=== PATIENT | male | born 1950 | race Caucasian/White ===

== ENCOUNTER 2022-08-24 14:10 | Emergency (ER) | payer OTHER ==
[2022-08-24] MEDS ORDERED: DIAZEPAM 5 MG TABLET ONE (14:33)
[2022-08-24] MEDS ORDERED: HYDROCODONE/APAP 5/325 MG TAB ONE (14:34)
--- NOTE | 2022-08-24 16:04 | RAD REPORT ---
EXAM DESCRIPTION: RAD - Ribs Left - 08/24/2022 3:56 pm CLINICAL HISTORY: left ribs COMPARISON: No comparisons FINDINGS/IMPRESSION: Acute minimally displaced left anterolateral seventh through tenth rib fracture s. No pneumothorax .
--- NOTE | 2022-08-24 16:05 | RAD REPORT ---
EXAM DESCRIPTION: RAD - Pelvis - 08/24/2022 3:56 pm CLINICAL HISTORY: TRAUMA COMPARISON: No comparisons FINDINGS/IMPRESSION: Complex fractures involving both the right and left obturator rings. Recommend CT for further evaluation. No hip fracture is seen
--- NOTE | 2022-08-24 16:06 | RAD REPORT ---
EXAM DESCRIPTION: RAD - Chest Single View - 08/24/2022 3:56 pm CLINICAL HISTORY: TRAUMA COMPARISON: Pelvis dated 08/24/2022; Ribs Left dated 08/24/2022 FINDINGS: Lines: None. Lungs: No evidence of edema or pneumonia. Pleural: No significant pleural effusions or pneumothorax. Cardiac: The heart size is within normal limits. Mediastinum: Within normal limits. Bones: Left rib fractures. Reference dedicated left rib series. Other: None IMPRESSION: No acute cardiopulmonary disease. Known left-sided rib fractures.
--- NOTE | 2022-08-24 16:07 | RAD REPORT ---
EXAM DESCRIPTION: RAD - Hand Left 3 View - 08/24/2022 3:56 pm CLINICAL HISTORY: PAIN COMPARISON: No comparisons FINDINGS/IMPRESSION: No acute fracture. No malalignment. Mild degenerative changes are present at th e first carpometacarpal joint. Mild interphalangeal joint space narrowing and degenerative changes at the first through third MCPs.
[2022-08-24 16:39] LABS: Absolute Lymphocytes (CBC) 0.6 K/uL (0.7-4.9); Hematocrit 40.2 % (39.6-49.0); Lymphocytes % 6.7 % (15.3-44.8); MCV 90.2 fL (80-100); MPV 7.9 fL (7.6-11.3); RBC Red Blood Cell Count 4.45 M/uL (4.33-5.43)
--- NOTE | 2022-08-24 16:40 | ER ---
Nurse's Notes [facility] Name: Rad Yost Age: 72 yrs Sex: Male : 1950 Arrival Date: 08/24/2022 Time: 14:17 Bed 18 Private MD: Diagnosis: Multiple fractures of ribs, left side;Bilateral obturator ring fractures;Pain in left hand;Fall (on) (from) other stairs and steps Presentation: 08/24 14:17 Chief complaint: EMS states: Fell off a ladder, approx. 4 foot up, due to wind and jl7 rushing, fell on right hip, reports left rib pain, did not loose consciousness. Coronavirus screen: Vaccine status: Patient reports receiving the 2nd dose of the covid vaccine. At this time, the client does not indicate any symptoms associated with coronavirus-19. Ebola Screen: No symptoms or risks identified at this time. Initial Sepsis Screen: Does the patient meet any 2 criteria? No. Patient's initial sepsis screen is negative. Does the patient have a suspected source of infection? No. Patient's initial sepsis screen is negative. Risk Assessment: Do you want to hurt yourself or someone else? Patient reports no desire to harm self or others. Onset of symptoms was August 24, 2022 at 13:30. 14:17 Method Of Arrival: EMS: [facility] jl7 14:17 Acuity: DONNA 3 jl7 16:07 Care prior to arrival: None. Mechanism of Injury: Fall from ladder approximately 4 jl7 feet. Trauma event details: Injury occurred in the [facility], Injury occurred: at home. Injury occurred: August 24, 2022 Injury occurred at: 13:30. Triage Assessment: 14:20 General: Appears in no apparent distress. uncomfortable, Behavior is calm, cooperative, jl7 appropriate for age. Pain: Complains of pain in left ribs Pain currently is 7 out of 10 on a pain scale. Trauma Activation: Alert Physician: ED Physician; Name: Anaid; Notified At: 16:07; Arrived At: 16:07 Physician: General Surgeon; Name: ; Notified At: 16:07; Arrived At: Physician: Radiology; Name: Karla; Notified At: 16:07; Arrived At: 16:08 Physician: Respiratory; Name: ; Notified At: 16:07; Arrived At: Physician: Lab; Name: ; Notified At: 16:07; Arrived At: Historical: - Allergies: 14:20 No Known Allergies; jl7 - Home Meds: 14:20 None [Active]; jl7 - PMHx: 14:20 None; jl7 - PSHx: 14:20 None; jl7 - Immunization history:: Client reports receiving the 2nd dose of the Covid vaccine. - Social history:: Smoking status: Patient denies any tobacco usage or history of. - Immunization history: Last tetanus immunization: unknown. Screenin:30 Abuse screen: Denies threats or abuse. Denies injuries from another. Nutritional mb8 screening: No deficits noted. Tuberculosis screening: No symptoms or risk factors identified. Tuberculosis screening: No symptoms or risk factors identified. Fall Risk Fall in past 12 months (25 points). Secondary diagnosis (15 points) No IV (0 pts). Ambulatory Aid- None/Bed Rest/Nurse Assist (0 pts). Gait- Normal/Bed Rest/Wheelchair (0 pts) Mental Status- Oriented to own ability (0 pts). Total [place] Fall Scale indicates Low Risk Score (25-44 pts). Fall prevention measures have been instituted. Side Rails Up X 2 Family Present and informed to notify staff if they need to leave bedside As available Patient and Family Educated on Fall Prevention Program and strategies. Primary Survey: 16:07 NO uncontrolled hemorrhage observed. A: The client is awake and alert. The airway is jl7 patent. Breathing/Chest: Spontaneous respiratory effort, equal unlabored respirations, breath sounds clear bilaterally, regular pattern, symmetrical chest rise and fall. Circulation: No external hemorrhage present. Regular and strong central pulse, skin warm/dry/normal color. Disability Client is alert. Exposure/Environment: All clothing and personal items were removed. Forensic evidence collection is not deemed to be indicated at this time. Items placed in patient belonging bag. There is no evidence of uncontrolled external bleeding. No obvious injuries are noted at this time. A warming method has been applied: A warm blanket has been provided to the patient. 17:00 Reassessment Alertness and Airway: Awake and alert. The airway is patent. Breathing: jl7 Spontaneous respiratory effort, equal unlabored respirations, breath sounds clear bilaterally, regular pattern with symmetrical chest rise and fall. Circulation: No external hemorrhage noted. Regular and strong central pulse, skin warm/dry/normal color. Disability: Alert. Assessment: 14:29 Cardiovascular: No deficits noted. Respiratory: No deficits noted. Musculoskeletal: mb8 Circulation, motion, and sensation intact. Capillary refill < 3 seconds, Reports pain in left side chest. 15:31 Reassessment: Patient and/or family updated on plan of care and expected duration. Pain mb8 level reassessed. Patient is alert, oriented x 3, equal unlabored respirations, skin warm/dry/pink. 16:03 Reassessment: Patient and/or family updated on plan of care and expected duration. Pain mb8 level reassessed. Patient is alert, oriented x 3, equal unlabored respirations, skin warm/dry/pink. 16:07 General: Appears in no apparent distress. uncomfortable, Behavior is calm, cooperative, jl7 appropriate for age. 17:32 Reassessment: Patient and/or family updated on plan of care and expected duration. Pain mb8 level reassessed. Patient is alert, oriented x 3, equal unlabored respirations, skin warm/dry/pink. 18:28 Reassessment: Patient and/or family updated on plan of care and expected duration. Pain mb8 level reassessed. Patient is alert, oriented x 3, equal unlabored respirations, skin warm/dry/pink. 18:55 Reassessment: Patient and/or family updated on plan of care and expected duration. Pain mb8 level reassessed. Patient is alert, oriented x 3, equal unlabored respirations, skin warm/dry/pink. 19:26 Reassessment: Patient appears in no apparent distress at this time. report provided to aa9 [facility] ambulance EMT, morphine IVP provided before departure, pt stable, [id number], understands need for transfer, denies any concerns at this time. Vital Signs: 14:17 Weight 95.25 kg; Height 6 ft. 0 in. (182.88 cm); Pain 7/10; jl7 14:29 BP 123 / 72; Pulse 58; Resp 14; Temp 97.5; Pulse Ox 99% ; Pain 10/10; mb8 15:00 BP 123 / 65; Pulse 62; Resp 14; Pulse Ox 99% ; Pain 8/10; mb8 16:03 BP 102 / 42; Pulse 58; Resp 14; Pulse Ox 100% on R/A; Pain 6/10; mb8 16:42 BP 132 / 63; Pulse 65; Resp 16; Pulse Ox 99% ; mb8 17:30 BP 122 / 59; Pulse 61; Resp 16; Pulse Ox 97% on R/A; Pain 2/10; mb8 18:27 BP 133 / 64; Pulse 63; Resp 14; Pulse Ox 97% on R/A; mb8 18:55 BP 140 / 63; Pulse 65; Resp 15; Pulse Ox 97% on R/A; mb8 14:17 Body Mass Index 28.48 (95.25 kg, 182.88 cm) jl7 Vitals: 16:03 Cardiac Rhythm Assessment Sinus rhythm. mb8 16:42 Cardiac Rhythm Assessment Sinus rhythm. mb8 18:27 Cardiac Rhythm Assessment Sinus rhythm. mb8 18:55 Cardiac Rhythm Assessment Sinus rhythm. mb8 [place] Coma Score: 16:07 Eye Response: spontaneous(4). Verbal Response: oriented(5). Motor Response: obeys jl7 commands(6). Total: 15. 16:42 Eye Response: spontaneous(4). Verbal Response: oriented(5). Motor Response: obeys jl7 commands(6). Total: 15. 17:30 Eye Response: spontaneous(4). Verbal Response: oriented(5). Motor Response: obeys jl7 commands(6). Total: 15. 18:27 Eye Response: spontaneous(4). Verbal Response: oriented(5). Motor Response: obeys jl7 commands(6). Total: 15. Trauma Score (Adult): 16:07 Eye Response: spontaneous(1); Verbal Response: oriented(1); Motor Response: obeys jl7 commands(2); Systolic BP: > 89 mm Hg(4); Respiratory Rate: 10 to 29 per min(4); [place] Score: 15; Trauma Score: 12 ED Course: 14:17 Patient arrived in ED. eb 14:20 Triage completed. jl7 14:20 Arm band placed on right wrist. jl7 14:20 Inserted saline lock: 18 gauge in right antecubital area, using aseptic technique. mb8 Blood collected. 14:22 Mauro Mcinotsh PA is PHCP. [facility] 14:22 Luis Alberto Worrell DO is Attending Physician. [facility] 14:29 Rad Dhillon, RN is Primary Nurse. mb8 14:30 No provider procedures requiring assistance completed. mb8 15:58 Ribs Left XRAY In Process Unspecified. EDMS 15:58 CXR XRAY In Process Unspecified. EDMS 15:58 Hand Left 3 View XRAY In Process Unspecified. EDMS 15:58 Pelvis XRAY In Process Unspecified. EDMS 16:07 Patient maintains SpO2 saturation greater than 95% on room air. Thermoregulation: warm jl7 blanket given to patient. 16:33 CT Chest, Abdomen, Pelvis - W/Contrast In Process Unspecified. EDMS 16:58 initiated a transfer with Sierra Bond Rn from the [facility]. eb 17:05 Sierra called back from [place] to connect trauma team with Dr. Worrell but Dr. Worrell had eb to respond to a code and we are to call back once he returns. 17:45 administrative approval given by Jeannette Bland Rn/ patient has been accepted to [facility] ER/ Dr. Frank has accepted the patient in transfer/ report to be called to [phone]. 18:27 Patient has correct armband on for positive identification. Placed in gown. Bed in low jl7 position. Call light in reach. Side rails up X2. 18:56 Patient transferred, IV remains in place. mb8 Administered Medications: 14:36 Drug: HYDROcodone-acetaminophen 5 mg-325 mg 1 tabs Route: PO; mb8 16:04 Follow up: Response: No adverse reaction; Pain is decreased; RASS: Alert and Calm (0) mb8 14:36 Drug: Valium (diazepam) 5 mg Route: PO; mb8 16:04 Follow up: Response: No adverse reaction; Nausea is decreased; RASS: Alert and Calm (0) mb8 19:22 Drug: morphine 4 mg Route: IVP; Infused Over: 4 mins; Site: right antecubital; aa9 Medication: 14:30 VIS not applicable for this client. mb8 Outcome: 16:39 ER care complete, transfer ordered by . ms3 18:18 Transferred by ground EMS Note: Report given to Yesenia de los santos 18:55 Patient's length of stay in the Emergency Department was greater than 2 hours. mb8 19:26 Condition: stable aa9 19:27 Patient left the ED. aa9 Signatures: Dispatcher [employer] EDMS Mauro Mcintosh PA PA jmm Leal, Jahala, RN RN jl7 Key Mcnair Marcus, DO DO ms3 Izabella Jewell RN RN aa9 Rad Dhillon RN RN mb8
--- NOTE | 2022-08-24 16:40 | EDPHYS ---
Physician Documentation [facility] Name: Rad Yost Age: 72 yrs Sex: Male : 1950 Arrival Date: 08/24/2022 Time: 14:17 Bed 18 Private MD: ED Physician Luis Alberto Worrell HPI: 08/24 14:33 This 72 yrs old Male presents to ER via EMS with complaints of fall from ladder. ms3 14:33 Details of fall: The patient fell from a height, from a ladder, approximately 4 feet. ms3 Onset: The symptoms/episode began/occurred acutely, just prior to arrival. Associated injuries: The patient sustained Left hand, pelvis, left ribs. Severity of symptoms: At their worst the symptoms were moderate, in the emergency department the symptoms are unchanged. Historical: - Allergies: 14:20 No Known Allergies; jl7 - Home Meds: 14:20 None [Active]; jl7 - PMHx: 14:20 None; jl7 - PSHx: 14:20 None; jl7 - Immunization history:: Client reports receiving the 2nd dose of the Covid vaccine. - Social history:: Smoking status: Patient denies any tobacco usage or history of. - Immunization history: Last tetanus immunization: unknown. ROS: 14:33 Constitutional: Negative for fever, and chills. Neck: Negative for injury, pain, and ms3 swelling, Cardiovascular: Negative for chest pain, and palpitations. Respiratory: Negative for shortness of breath, cough, wheezing, and pleuritic chest pain, Abdomen/GI: Negative for abdominal pain, nausea, vomiting, diarrhea, and constipation. 14:33 MS/extremity: Positive for pain, tenderness, Left ribs, pelvis, left hand. Exam: 14:33 Constitutional: This is a well developed, well nourished patient who is awake, alert, ms3 and in no acute distress. Head/Face: Normocephalic, atraumatic. Neck: Trachea midline, no cervical lymphadenopathy. Supple, full range of motion without nuchal rigidity, or vertebral point tenderness. No Meningismus. Chest/axilla: Normal chest wall appearance and motion. Nontender with no deformity. Cardiovascular: Regular rate and rhythm with a normal S1 and S2. No gallops, murmurs, or rubs. Normal PMI, no JVD. No pulse deficits. Abdomen/GI: Soft, non-tender, with normal bowel sounds. No distension or tympany. No guarding or rebound. No evidence of tenderness throughout. Skin: Warm, dry with normal turgor. Normal color with no rashes, no lesions, and no evidence of cellulitis. 14:33 Musculoskeletal/extremity: Extremities: noted in the left hand: pain, tenderness, noted in the pelvis: pain. 16:36 Musculoskeletal/extremity: Pelvis stable. ms3 Vital Signs: 14:17 Weight 95.25 kg; Height 6 ft. 0 in. (182.88 cm); Pain 7/10; jl7 14:29 BP 123 / 72; Pulse 58; Resp 14; Temp 97.5; Pulse Ox 99% ; Pain 10/10; mb8 15:00 BP 123 / 65; Pulse 62; Resp 14; Pulse Ox 99% ; Pain 8/10; mb8 16:03 BP 102 / 42; Pulse 58; Resp 14; Pulse Ox 100% on R/A; Pain 6/10; mb8 16:42 BP 132 / 63; Pulse 65; Resp 16; Pulse Ox 99% ; mb8 17:30 BP 122 / 59; Pulse 61; Resp 16; Pulse Ox 97% on R/A; Pain 2/10; mb8 18:27 BP 133 / 64; Pulse 63; Resp 14; Pulse Ox 97% on R/A; mb8 18:55 BP 140 / 63; Pulse 65; Resp 15; Pulse Ox 97% on R/A; mb8 14:17 Body Mass Index 28.48 (95.25 kg, 182.88 cm) jl7 [place] Coma Score: 16:07 Eye Response: spontaneous(4). Verbal Response: oriented(5). Motor Response: obeys jl7 commands(6). Total: 15. 16:42 Eye Response: spontaneous(4). Verbal Response: oriented(5). Motor Response: obeys jl7 commands(6). Total: 15. 17:30 Eye Response: spontaneous(4). Verbal Response: oriented(5). Motor Response: obeys jl7 commands(6). Total: 15. 18:27 Eye Response: spontaneous(4). Verbal Response: oriented(5). Motor Response: obeys jl7 commands(6). Total: 15. Trauma Score (Adult): 16:07 Eye Response: spontaneous(1); Verbal Response: oriented(1); Motor Response: obeys jl7 commands(2); Systolic BP: > 89 mm Hg(4); Respiratory Rate: 10 to 29 per min(4); [place] Score: 15; Trauma Score: 12 MDM: 14:24 Patient medically screened. ms3 14:33 Differential diagnosis: contusion, fracture, sprain, strain. ms3 17:44 ED course: Dr Frank accepts patient without consult per transfer center. ms3 17:45 Data reviewed: vital signs, nurses notes, lab test result(s), radiologic studies, and ms3 as a result, I will Transfer patient. Counseling: I had a detailed discussion with the patient and/or guardian regarding: the historical points, exam findings, and any diagnostic results supporting the discharge/admit diagnosis, lab results, radiology results, the need to transfer to another facility. 08/24 16:14 Order name: Basic Metabolic Panel; Complete Time: 17:42 ms3 08/24 16:14 Order name: CBC with Diff; Complete Time: 17:42 ms3 08/24 14:25 Order name: Ribs Left XRAY; Complete Time: 16:11 ms3 08/24 16:14 Order name: Type And Screen; Complete Time: 17:42 ms3 08/24 16:36 Order name: SARS RAPID; Complete Time: 17:42 mb8 08/24 18:02 Order name: ABO/RH no charge; Complete Time: 18:12 EDMS 08/24 14:25 Order name: CXR XRAY; Complete Time: 16:11 ms3 08/24 14:25 Order name: Hand Left 3 View XRAY; Complete Time: 16:11 ms3 08/24 14:25 Order name: Pelvis XRAY; Complete Time: 16:11 ms3 08/24 16:14 Order name: Labs collected and sent; Complete Time: 16:35 ms3 08/24 16:14 Order name: CT Chest, Abdomen, Pelvis - W/Contrast; Complete Time: 17:42 ms3 Administered Medications: 14:36 Drug: HYDROcodone-acetaminophen 5 mg-325 mg 1 tabs Route: PO; mb8 16:04 Follow up: Response: No adverse reaction; Pain is decreased; RASS: Alert and Calm (0) mb8 14:36 Drug: Valium (diazepam) 5 mg Route: PO; mb8 16:04 Follow up: Response: No adverse reaction; Nausea is decreased; RASS: Alert and Calm (0) mb8 19:22 Drug: morphine 4 mg Route: IVP; Infused Over: 4 mins; Site: right antecubital; aa9 Disposition Summary: 08/24/22 16:39 Transfer Ordered Transfer Location: [facility] ms3 Reason: Higher level of care ms3 Condition: Stable ms3 Problem: new ms3 Symptoms: are unchanged ms3 Accepting Physician: Dr Frank(08/24/22 19:27) aa9 Diagnosis - Multiple fractures of ribs, left side ms3 - Bilateral obturator ring fractures ms3 - Pain in left hand ms3 - Fall (on) (from) other stairs and steps ms3 Forms: - Medication Reconciliation Form ms3 - SBAR form ms3 Signatures: Dispatcher [employer] EDVanda Keen RN RN jl7 Luis Alberto Worrell DO DO ms3 Izabella Jewell RN RN aa9 Rad Dhillon RN RN mb8 Corrections: (The following items were deleted from the chart) 17:44 16:39 Dr amor ms3 19:27 17:44 Dr Frank ms3 aa9
--- NOTE | 2022-08-24 16:44 | RAD REPORT ---
EXAM DESCRIPTION: CTChest Abdomen Pelvis W Cont - 08/24/2022 4:31 pm CLINICAL HISTORY: fall COMPARISON: No comparisons TECHNIQUE: CT of the chest, abdomen, and pelvis was performed. All CT scans are performed using dose optimization technique as appropriate and may include automated exposure control or mA/KV adjustment according to patient size. FINDINGS: Thorax: Chest Wall: No abnormal mass Lungs: No acute abnormality. Pleura: No effusions or pneumothorax. Bindu/Mediastinum: No lymphadenopathy. Aorta/Pulmonary Arteries: Unremarkable Heart: Normal size. Multi-vessel coronary artery disease. Abdomen/Pelvis: Liver: Hepatic steatosis. Biliary: No biliary ductal dilatation. Stomach: No significant focal abnormality. Duodenum: No significant focal abnormality. Pancreas: No significant abnormality. Spleen: No significant abnormality. Adrenal: No suspicious lesions. Kidney/ureter: No hydronephrosis. No renal calculi. Mild rotated left kidney. Retroperitoneum: No retroperitoneal adenopathy. Vascular: No aneurysm. Bowel: No significant focal abnormality. Peritoneum: No ascites or free air. Bladder: Grossly unremarkable. No convincing evidence of traumatic injury. Reproductive: No adnexal masses. Bones: Bilateral obturator ring fractures. The inferior pubic rami fractures are minimally displaced. Both fractures involving the superior pubic rami extending to the pubic symphysis. There is 1 cm of distraction of the fragments. Mild hematoma that is previsical. No active bleeding identified. Nondis placed left sixth through tenth rib fractures. Multilevel degenerative changes are present in the spi ne. Other: n/a IMPRESSION: 1. Mildly comminuted and displaced bilateral obturator ring fractures. Mild adjacent hem atoma without evidence of active bleeding. 2. Essentially nondisplaced left sixth through tenth rib fractures. No pneumothorax.
[2022-08-24 16:59] LABS: Potassium 3.8 mmol/L (3.5-5.1)
[2022-08-24 16:59] LABS: SARS-CoV-2 Antigen Rapid Res Negative (Negative)
[2022-08-24] MEDS ORDERED: MORPHINE 4 MG/ML SYR ONE (19:16)
[2022-08-24 19:34] VITALS: TEMP 97.5
[2022-08-24 19:39] VITALS: O2SAT 97
[2022-08-24 19:41] VITALS: BP 140/63
== END 2022-08-24 19:27 | disposition short-term general hospital (02) ==
LOC: ER 14:10
DX: S22.42XA Multiple fractures of ribs, left side, initial encounter for closed fracture (principal); S32.810A Multiple fractures of pelvis with stable disruption of pelvic ring, initial encounter for closed fracture; W11.XXXA Fall on and from ladder, initial encounter; Z20.822 Contact with and (suspected) exposure to COVID-19
CPT/HCPCS: 85025; 80048; 36415; 86900; 86850; 86901; 71260; 74177; 71045; 72170; 73130; 71100; 96374; 99285; 87811; Q9967

== ENCOUNTER 2022-08-30 11:14 | Inpatient (IN) | payer OTHER ==
--- OUTSIDE RECORDS SUMMARY | 2022-08-30 11:26 | XMS REPORT | Continuity of Care Document ---
:1950 Author Organization [facility] t Address [address] [place] [address] Care Team Providers Name Role Phone Sandip MORALES, Etienne Moncada Primary Care Physician Prasad MORALES, Zac Foster Attending Clinician Payers Payer Name Policy Type Policy Number Effective Date Expiration Date S ource Problems Condition Condition Condition Status Onset Resolution Last Treating Co mments Source Name Details Category Date Date Treatment Clinician Date Stress Stress Disease Active [facility] [place] Medial Medial Disease Active [facility] meniscus meniscus 01-17 [facility] tear tear [facility] 00 [place] 824 - 824 - Diagnosis Active 2012-03-03 Mem oria ANKLE ANKLE 03-03 17:26:00 l FRACTURE FRACTURE 00:01: David gonzáles Active 00 03/03/2012 [facility] Allergies, Adverse Reactions, Alerts This patient has no known allergies or adverse reactions. Family History Family Member Diagnosis Comments Start Date Stop Date Source Natural father Heart attack [facility] Social History Social Habit Start Date Stop Date Quantity Comments Source Alcohol intake 2017-01-17 2017-01-17 [facility] (finding) Tobacco use and 2017-01-11 2017-01-[address] [facility] exposure 00:00:00 00:[facility]:00 [facility] Center Sex Assigned At [address] [facility] 00:[facility] Smoking Status Start Date Stop Date Source Never smoked tobacco [facility] Medications Ordered Filled Start Stop Current Ordering Indication Dosage Frequency Signature Comments Components Source Medication Medication Date Date Medication? Clinician (SIG) Name Name atorvastati Yes [id number] TAKE ONE [facility] (LIPITOR) 04-27 (1) st 10 mg 00:00: TABLET(S) Hospita tablet 00 BY MOUTH l ONCE A DAY. atorvastati Yes [id number] TAKE ONE [facility] (LIPITOR) 04-27 (1) st 10 mg 00:00: TABLET(S) Hospita tablet 00 BY MOUTH l ONCE A DAY. valsartan Yes TAKE ONE [facility] sean (DIOVAN) 5-05 (1) st 160 MG 00:00: TABLET(S) Hospit a tablet 00 BY MOUTH l DAILY. valsartan Yes TAKE ONE [facility] sean (DIOVAN) 5-05 (1) st 160 MG 00:00: TABLET(S) Hospit a tablet 00 BY MOUTH l DAILY. atorvastati 2020-10- No [id number] Take 1 [facility] (LIP[facility]) 0-04-[address] 10 mg 00:00: 00:00 mouth [facility]osp[facility] tablet 00 :00 daily l atorvastati 2020-10- No [id number] Take 1 [facility] (LIP[facility]OR) 0-04-[address] 10 mg 00:00: 00:00 mouth [facility] tablet 00 :00 daily l aspirin Yes 81mg QD Take 81 mg [facility] (ECOTRIN) -[address] 81 MG 11:29: daily. Hospita enteric 39 l coated tablet multivitami Yes 1{tbl} QD Take 1 Me thodi n 7-[address] (THERAGRAN) 11:29: mouth Hospi ta tablet 39 daily. l aspirin Yes 81mg QD Take 81 mg [facility] (ECOTRIN) 7-[address] 81 MG 11:29: daily. Hospita enteric 39 l coated tablet multivitami Yes 1{tbl} QD Take 1 Me thodi n 7-[address] (THERAGRAN) 11:29: mouth Hospi ta tablet 39 daily. l valsartan 2021- No [id number] 160mg QD Take 1 [facility] (DIOVAN) 4-23 04-[address] 160 MG 00:00: 04:59 (160 mg Hospita tablet 00 :00 total) by l mouth daily. valsartan 2021- No [id number] 160mg QD Take 1 [facility] (DIOVAN) 4-23 04-[address] 160 MG 00:00: 04:59 (160 mg Hospita tablet 00 :00 total) by l mouth daily. propranolol Yes essential 10mg Q.5D Take [address] [facility] [address] (INDERAL) 3-23 tremor by mouth 2 Jessica kes 10 MG 11:15: (two) Medical tablet 35 times Center daily . atorvastati Yes 10mg QD Take [address] [facility] (LIPITOR) 3-23 by mouth Luke s 10 MG 11:15: every Medical tablet 35 evening. Center atorvastati Yes 10mg QD Take [address] n (LIPITOR) 3-23 by mouth Luke s 10 MG 11:15: every Medical tablet 35 evening. Center propranolol Yes essential 10mg Q.5D Take [address] (INDERAL) 3-23 tremor by mouth 2 Jessica kes 10 MG 11:15: (two) Medical tablet 35 times Center daily . propranolol 2012-10 Yes 60mg QD Take 60 mg [facility] [place] (IND[place]AL 2-[address] [place]) 60 MG 00:00: daily. Hospit a 24 hr 00 l capsule propranolol 2012-10 Yes 60mg QD Take 60 mg [facility] ([facility]-[address] [place]) 60 MG 00:00: daily. Hospit a 24 hr 00 l capsule Procedures This patient has no known procedures. Plan of Care Planned Activity Planned Date Details Comments Source Future Scheduled 2022-08-30 HEPATITIS B VACCINES [facility] Test 11:22:52 (1 of 3 - 3-dose series) [code = HEPATITIS B VACCINES (1 of 3 - 3-dose series)] Future Scheduled 2022-08-30 Hepatitis C screening [facility] Test 11:22:52 (procedure) [code = 348787219] Future Scheduled 2022-08-30 COLONOSCOPY SCREENING [facility] Test 11:22:52 [code = COLONOSCOPY SCREENING] Future Scheduled 2022-08-30 SHINGLES VACCINES ([address] [facility] Test 11:22:52 of 2) [code = SHINGLES VACCINES (1 of 2)] Future Scheduled 2022-08-30 65+ PNEUMOCOCCAL [facility] Test 11:22:52 VACCINE (2 - PPSV23 if available, else PCV20) [code = 65+ PNEUMOCOCCAL VACCINE (2 - PPSV23 if available, else PCV20)] Future Scheduled 2022-08-30 COVID-19 VACCINE (3 - Me [facility] Test 11:22:52 Booster for Pfizer series) [code = COVID-19 VACCINE (3 - Booster for Pfizer series)] Future Scheduled 2022-08-30 INFLUENZA VACCINE [facility] Test 11:22:52 [code = INFLUENZA VACCINE] Future Scheduled 2022-08-15 HEPATITIS B VACCINES Met [facility] Test 08:22:13 (1 of 3 - 3-dose series) [code = HEPATITIS B VACCINES (1 of 3 - 3-dose series)] Future Scheduled 2022-08-15 Hepatitis C screening [facility] Test 08:22:13 (procedure) [code = 655978377] Future Scheduled 2022-08-15 COLONOSCOPY SCREENING [facility] Test 08:22:13 [code = COLONOSCOPY SCREENING] Future Scheduled 2022-08-15 SHINGLES VACCINES ([address] [facility] Test 08:22:13 of 2) [code = SHINGLES VACCINES (1 of 2)] Future Scheduled 2022-08-15 65+ PNEUMOCOCCAL [facility] Test 08:22:13 VACCINE (2 - PPSV23 if available, else PCV20) [code = 65+ PNEUMOCOCCAL VACCINE (2 - PPSV23 if available, else PCV20)] Future Scheduled 2022-08-15 COVID-19 VACCINE (3 - [facility] Test 08:22:13 Booster for Pfizer series) [code = COVID-19 VACCINE (3 - Booster for Pfizer series)] Future Scheduled 2022-08-15 INFLUENZA VACCINE [facility] Test 08:22:13 [code = INFLUENZA VACCINE] Encounters Start End Encounter Admission Attending Care Care Encounter Source Date/Time Date/Time Type Type Clinicians Facility Department ID 2022-04-25 2022-04-25 Refill Prasad, 1.2.840.1 [id number] [facility] 00:00:00 00:00:00 Zac Valle50.1.1 926 s t 3.430.2.7 Hospit a .3.598706 l .8 2022-04-25 2022-04-25 Refill Prasad, 1.2.840.1 [id number] [facility] 00:00:00 00:00:00 Zac Valle50.1.1 926 s t 3.430.2.7 Hospit a .3.246235 l .8 2022-03-19 2022-03-19 Orders Parham, 1.2.840.1 [id number] [facility] 00:00:00 00:00:00 Only Zac Valle50.1.1 651 s t 3.430.2.7 Hospit a .3.365844 l .8 2022-03-19 2022-03-19 Orders Parham, 1.2.840.1 [id number] [facility] 00:00:00 00:00:00 Only Zac Valle50.1.1 651 s t 3.430.2.7 Hospit a .3.733557 l .8 2022-03-01 2022-03-01 Refill Parham, 1.2.840.1 [id number] [facility] 00:00:00 00:00:00 Zac Foster 99584.1.1 716 s t 3.430.2.7 Hospit a .3.980179 l .8 2022-03-01 2022-03-01 Refill Parham, 1.2.840.1 [id number] [facility] 00:00:00 00:00:00 Zac Foster 51202.1.1 716 s t 3.430.2.7 Hospit a .3.370848 l .8 2021-05-05 2021-05-05 [id number] [place] 00:00:00 00:00:00 ZAC 93Althea [facility] 2021-04-17 2021-04-17 Outpatient PARHAM, [facility] [id number] [place] 00:00:00 00:00:00 ZAC 178 Method i 2021-04-17 2021-04-17 Outpatient PARHAM, [facility] [id number] [place] 00:00:00 00:00:00 ZAC 176 Method [facility] 2021-04-17 2021-04-17 Outpatient PARHAM, [facility] [id number] [place] 00:00:00 00:00:00 ZAC 174 Method i 2021-04-17 2021-04-17 Outpatient PARHAM, [facility] [id number] [address] [place] 00:00:00 00:00:00 ZAC 179 Method [facility] 2021-02-17 2021-02-17 Outpatient PARHAM, [facility] [id number] [place] 00:00:00 00:00:00 ZAC 319 Method [facility] 2020-04-14 2020-04-14 Outpatient PARHAM, [facility] [id number] [place] 00:00:00 00:00:00 ZAC 915 Method i 2012-03-03 2012-03-03 ELIECER LOREE [facility] [id number] [facility] 17:13:00 17:13:00 00 l Sarath Results This patient has no known results.
[2022-08-30] MEDS ORDERED: ACETAMINOPHEN 500 MG TAB PO PRN (11:53)
[2022-08-30] MEDS ORDERED: BISACODYL 10 MG RECTAL SUPP PR PRN (11:54)
[2022-08-30] MEDS ORDERED: MELATONIN 3 MG TABLET PO PRN (11:59)
[2022-08-30] MEDS ORDERED: methocarbamoL 500 MG TAB PO PRN (12:00)
[2022-08-30 12:41] VITALS: BMI 28.7
[2022-08-30] MEDS: PROPRANOLOL HCL 10 MG TAB PO SCH ×3 (12:41→19:22)
[2022-08-30] MEDS ORDERED: methocarbamoL 500 MG TAB PO SCH (13:00)
[2022-08-30] MEDS ORDERED: GABAPENTIN 100 MG CAP PO SCH ×2 (14:00→17:00)
[2022-08-30 14:25] LABS: Urine Bilirubin NEGATIVE (Negative); Urine Blood Negative (Negative); Urine Clarity Clear (Clear); Urine Color Yellow (Yellow); Urine Glucose NEGATIVE (Negative); Urine Mucus Slight /HPF (None Seen); Urine Protein TRACE (Negative); Urine RBC <5 /HPF (None Seen); Urine Urobilinogen 1+ (Normal); Urine pH 6.5 (5.0-7.0)
[2022-08-30] MEDS: TRAMADOL HCL 50 MG TAB PO PRN (16:36)
[2022-08-30] MEDS ORDERED: PROPRANOLOL HCL 10 MG TAB PO SCH (18:00)
[2022-08-30] MEDS: ATORVASTATIN 10 MG TAB PO SCH (19:21)
[2022-08-30] MEDS: POLYETHYL GLY 3350 17 GM/DOSE PO SCH ×2 (19:22→20:00)
[2022-08-30] MEDS: DOCUSATE NA/SENNA CONC 1 TAB PO SCH ×2 (19:22→20:14)
[2022-08-30] MEDS: ENOXAPARIN 40 MG/0.4 ML SQ SCH (19:22)
[2022-08-30] MEDS: GABAPENTIN 300 MG CAP PO SCH (19:22)
[2022-08-30] MEDS: methocarbamoL 500 MG TAB PO PRN (19:24)
--- NOTE | 2022-08-31 00:06 | HP ---
Date of Admission: 08/30/2022 Chief Complaint: Hip and lower extremity pain from multiple fractures. History Of Present Illness: Mr. Yost is a 72-year-old patient with a history of essential hyperte nsion and dyslipidemia who fell from a ladder about 5 feet up on the 24 of August and immediately had pain in his lower extremities, chest and hip. He was taken to [facility]. He did not have loss of consciousness at the time of fall, but as noted, had significant pain in his lower extremities and chest. Imaging with CT scan, which is trauma series did identify multiple pelvic and rib fractures as well as extraperitoneal hemorrhages within the lower abdomen. There were superior and inferior pubic rami fractures, inferior displacement by about 1.5 cm with a small hemoperitoneum in the pelvis and fractures of the left lateral 6th and 7th ribs, anterolateral 8th, 9th and 10th rib s as well as lumbar L5 transverse fracture. There was a right sacral ala S1 and S2 fracture. There was pelvic ring disruption. Due to significant pain, the patient was unable to immediately leave the hospital and was managed by Pain Management. The fractures were nonsurgical requiring. He was also put on a weightbearing as tolerated status. Due to the significant pain and his inability to walk w ithout assistance to manage his activities of daily living and to take care of himself as appropriate , he was deemed to not be a candidate to be ready to be sent home and was therefore sent to inpatient rehabilitation as he begins to recover from the multiple traumatic fractures. Past Medical And Surgical History: Meniscus repair in 2016. Ear, Nose, and Throat procedures in his childhood. He also has benign essential tremor, dyslipidemia along with multiple fractures. Family History: Noncontributory. Social History: No alcohol, tobacco, or IV drug use. Allergies: NO KNOWN DRUG ALLERGIES. Medications: Tylenol Extra Strength 1000 mg every 8 hours as needed, Lipitor 10 mg at bedtime, Dulco lax 10 mg as needed for constipation, Lovenox 40 mg subcutaneously every 12 hours, gabapentin 300 mg twice daily, melatonin 3 mg at bedtime, Robaxin 500 mg 4 times a day, GlycoLax 17 g twice daily as ne eded, propranolol 10 mg 4 times daily, Senokot-S 2 tabs at bedtime, Flomax 0.4 mg daily, Ultram 50 mg every 6 hours, and Diovan 160 mg daily. Laboratory Studies: He has white blood cell count of 6.8, hemoglobin 12.9, hematocrit 38.3, and plat elets 151. Sodium 138, potassium 4.3, glucose 109, BUN 16, creatinine 0.84. X-ray Imaging: Noted his brain CT without contrast and trauma series showed no acute intracranial ab normalities. There was mild chronic global parenchymal volume loss. CT scan of the rest of the body with multiple fractures are documented above. Review of Systems: The patient does report pelvic pain and pain as he ambulates. Also notes constipation for 5 days and he finally had a bowel movement this morning. He had some difficulty sleeping while at outside hosp ital. He said that the nurses did keep him up at night as the nurse's station was right across his r oom and throughout the night they would make noise and had a light on and the room had no door. Othe rwise, no fevers or chills. He does have some myalgias and arthralgias. No rash, headache, weight c hange. No psychiatric issues. Physical Examination: Vital Signs: Blood pressure 143/70, pulse 58, respiratory rate 16, temperature 98.1, oxygen saturati on 97%. Weight 212 pounds, height 6 feet, BMI 28.8. General: Mr. Yost is actually standing and walking with the walker and therapist behind and toed a chair. HEENT: Head is normocephalic, atraumatic. His sclerae are anicteric. Oropharynx is pink and moist. Neck: Supple. Chest: Clear. Heart: Regular. Extremities: No significant edema, cyanosis, or clubbing. Neurologic: He is alert and oriented to situation, place, and person. He follows commands appropria tely. Cranial nerves show no focal deficits on 2 through 12. In terms of his motor examination, the lower extremities only give away to force because of significant pain, but he has no focal deficits. Sensation: He has slight stocking-glove loss to light touch and temperature. Reflexes: Depressed in upper and lower extremities. Gait: He is able to ambulate short distances using the rolling wal ker with supervision. Current Level Of Functioning: Currently, he did perform bed mobility and transfers with moderate ass istance using a rolling walker. He did require verbal cues for hand placement. He did perform supin e to sit transfers with maximum assistance. He anterior propelled the wheelchair using bilateral upp er extremities over 300 feet with the physical therapist in toe on a rolling stool. He also ambulate d 300 feet with contact guard assistance using a rolling walker. He did have a slow sharda. He did refuse a shower earlier today. He demonstrated modified independent for upper body dressing with a shirt and lower body dressing requires moderate assistance. Assessment And Plan: Mr. Yost is a 72-year-old patient who comes to [facility] inpatient rehabilitation with multiple fractures including multiple pelvic fractures, multiple rib fractures, L5 transverse process fracture, sacral alar fracture and significant pain. He does have a pelvic rim disruption and a 1.5 cm inferior pubic ramus fracture with inferior displacement. He had does have comorbidities of hypertension and dyslipidemia. His rehabilitation impairment group is 17 major mult iple trauma without brain or spinal injury. His etiologic diagnosis 08.4, status post major multiple fractures. He also has a left L5 fracture. Note again active comorbidities are hypertension, diabe hussein, dyslipidemia, and significant pain from his multiple fractures. Impact of his comorbid conditions: He does have comorbid conditions, which are managed medically by medications as listed in his medication profile above. His specific rehabilitation plan: He will have aggressive physical and occupational therapy to help him return towards independence. He is weightbearing as tolerated and is doing very well with the pa tient being managed by pain medications. He is able to tolerate 108 minutes of therapy with a minimu m of 5 of 7 days. Rehab treatment will consist of physician evaluation on a daily basis, nursing flo abilitation multiple times a day along with intensive physical and occupational therapy as noted jaswant benitez. The patient has a good understanding of the discharge process and as he is going through therapy, he will benefit tremendously from the interdisciplinary inpatient rehabilitation program. He has a potential to make significant improvement and return towards his level of functioning, which is indep endent with his occupational therapy, with his physical therapy and his ability to perform all of his activities as required. Barriers to discharge: He is at risk of deep vein thrombosis. He is on Lovenox for that. He is at risk for bleeding given his multiple fractures and will be evaluated by weekly hemoglobin and hematoc rit. He is at risk of depression given his multiple fractures and also with risk of infection and as piration and those will be evaluated multiple times a day with vital signs. His estimated length of stay is about 10 days. Prognosis is good. Rehabilitation Goals: 1.To return to independence in terms of upper and lower body dressing, his showering, his donning an d doffing of his shoes. 2.To ambulate household distances and beyond with independence. 3.To manage his pain with oral medications. 4.To reduce risk of constipation. 5.Reduce risk of infection. 6.Reduce risk of deep vein thrombosis. The goals were reviewed with the patient and he is in agreement. I acknowledge that I personally per formed a full examination on Mr. Yost within the 24 hours of his admission and determined the vitor ent to be able to tolerate the above course of treatment at an intensive level for a reasonable perio d of time and a detailed individualized plan of his care will be completed by hospital day 4, based o n the preadmission screen history and physical and therapeutic evaluations. GLORIA Voice ID: [id number]
[2022-08-31] MEDS: TRAMADOL HCL 50 MG TAB PO PRN ×4 (01:23→20:10)
[2022-08-31 06:09] LABS: Absolute Lymphocytes (CBC) 0.7 K/uL (0.7-4.9); Hematocrit 34.1 % (39.6-49.0); Lymphocytes % 14.5 % (15.3-44.8); MCV 87.5 fL (80-100); MPV 7.1 fL (7.6-11.3); RBC Red Blood Cell Count 3.89 M/uL (4.33-5.43)
[2022-08-31 06:28] LABS: Albumin 2.7 g/dL (3.4-5.0); Magnesium 2.1 mg/dL (1.8-2.4); Potassium 4.3 mmol/L (3.5-5.1); Prealbumin 14.3 mg/dL (20-40)
[2022-08-31] MEDS: TAMSULOSIN 0.4 MG SR CAP PO SCH (07:47)
[2022-08-31] MEDS: PROPRANOLOL HCL 10 MG TAB PO SCH ×4 (07:47→20:06)
[2022-08-31] MEDS: GABAPENTIN 300 MG CAP PO SCH ×2 (07:48→20:08)
[2022-08-31] MEDS: ENOXAPARIN 40 MG/0.4 ML SQ SCH ×2 (07:49→20:06)
[2022-08-31] MEDS: VALSARTAN 160 MG TAB PO SCH (07:49)
[2022-08-31] MEDS: BISACODYL E.C. 5 MG TAB PO SCH (07:49)
[2022-08-31] MEDS: POLYETHYL GLY 3350 17 GM/DOSE PO SCH ×2 (07:50→20:06)
--- NOTE | 2022-08-31 08:36 | P.RH.PN ---
Estimated Length of Stay: 14 Expected Discharge Date: 09/10/22 Discharge Disposition Plan: Home Family Support: Yes Assisted Goal: Mobility, Transfers, Self Care Vital Signs: Last Vital Signs Temp 98.1 F 08/30/22 20:11 Pulse 62 08/31/22 07:49 Resp 19 08/31/22 07:48 BP 137/72 08/31/22 07:49 Pulse Ox 97 08/31/22 07:48 Laboratory: Laboratory Last Values WBC 5.10 K/uL (4.3-10.9) 08/31/22 05:56 RBC 3.89 M/uL (4.33-5.43) L 08/31/22 05:56 Hgb 11.9 g/dL (13.6-17.9) L 08/31/22 05:56 Hct 34.1 % (39.6-49.0) L 08/31/22 05:56 MCV 87.5 fL (80-100) 08/31/22 05:56 MCH 30.7 pg (27.0-35.0) 08/31/22 05:56 MCHC 35.1 g/dL (32.0-36.0) 08/31/22 05:56 RDW 13.3 % (12.1-15.2) 08/31/22 05:56 Plt Count 166 K/uL (152-406) 08/31/22 05:56 MPV 7.1 fL (7.6-11.3) L 08/31/22 05:56 Neutrophils % 68.6 % (41.7-73.7) 08/31/22 05:56 Lymphocytes % 14.5 % (15.3-44.8) L 08/31/22 05:56 Monocytes % 9.9 % (3.3-12.3) 08/31/22 05:56 Eosinophils % 6.3 % (0-4.4) H 08/31/22 05:56 Basophils % 0.7 % (0-1.3) 08/31/22 05:56 Absolute Neutrophils 3.5 K/uL (1.8-8.0) 08/31/22 05:56 Absolute Lymphocytes 0.7 K/uL (0.7-4.9) 08/31/22 05:56 Absolute Monocytes 0.5 K/uL (0.1-1.3) 08/31/22 05:56 Absolute Eosinophils 0.3 K/uL (0-0.5) 08/31/22 05:56 Absolute Basophils 0.0 K/uL (0-0.5) 08/31/22 05:56 Sodium 135 mmol/L (136-145) L 08/31/22 05:56 Potassium 4.3 mmol/L (3.5-5.1) 08/31/22 05:56 Chloride 103 mmol/L (98-107) 08/31/22 05:56 Carbon Dioxide 29 mmol/L (21-32) 08/31/22 05:56 Anion Gap 7.3 mEq/L (5.0-15.0) 08/31/22 05:56 BUN 13 mg/dL (7-18) 08/31/22 05:56 Creatinine 0.82 mg/dL (0.55-1.3) 08/31/22 05:56 Est GFR (CKD-EPI) 93 ml/min (=/>90) 08/31/22 05:56 Glucose 107 mg/dL (74-106) H 08/31/22 05:56 Calcium 8.5 mg/dL (8.5-10.1) 08/31/22 05:56 Magnesium 2.1 mg/dL (1.8-2.4) 08/31/22 05:56 Albumin 2.7 g/dL (3.4-5.0) L 08/31/22 05:56 Prealbumin 14.3 mg/dL (20-40) L 08/31/22 05:56 Urine Color Yellow (Yellow) 08/30/22 12:25 Urine Clarity Clear (Clear) 08/30/22 12:25 Urine pH 6.5 (5.0-7.0) 08/30/22 12:25 Ur Specific [place] 1.030 (1.005-1.030) 08/30/22 12:25 Glucose (UA)(Auto) Negative (Negative) 08/30/22 12:25 Urine Ketones Negative (Negative) 08/30/22 12:25 Urine Blood Negative (Negative) 08/30/22 12:25 Urine Nitrite Negative (Negative) 08/30/22 12:25 Urine Bilirubin Negative (Negative) 08/30/22 12:25 Urine Urobilinogen 1+ (Normal) H 08/30/22 12:25 Ur Leukocyte Esterase Negative David/uL (Negative) 08/30/22 12:25 Urine RBC <5 /HPF (None Seen) 08/30/22 12:25 Urine WBC <5 /HPF (<5) 08/30/22 12:25 Urine Mucus Slight /HPF (None Seen) 08/30/22 12:25 Urine Total Protein Trace (Negative) H 08/30/22 12:25 SARS-CoV-2 Rap RNA(RT-PCR) Negative (NEGATIVE) 08/30/22 12:30 Weight: 212 lb Wound Present: No Physician Update: Labs reviewed and are stable. He has significant pain from his multiple broken bones. He is making very good progress overall with his therapy. Summary: Patient's care plan and long term care administrator goals have been reviewed and revised as necessary. Please see the Rehabilitation Signature page for all necessary signatures.
[2022-08-31] MEDS ORDERED: MELATONIN 5 MG TABLET PO PRN (11:27)
[2022-08-31] MEDS: ENSURE HIGH PROTEIN 237 ML CAN PO SCH (20:06)
[2022-08-31] MEDS: ATORVASTATIN 10 MG TAB PO SCH (20:07)
[2022-08-31] MEDS: DOCUSATE NA/SENNA CONC 1 TAB PO SCH (20:08)
[2022-08-31] MEDS: TRAZODONE 50 MG TABLET PO PRN (20:18)
[2022-09-01] MEDS: TRAMADOL HCL 50 MG TAB PO PRN ×3 (02:37→22:39)
[2022-09-01] MEDS: ENOXAPARIN 40 MG/0.4 ML SQ SCH (07:09)
[2022-09-01] MEDS: POLYETHYL GLY 3350 17 GM/DOSE PO SCH ×2 (08:00→19:46)
[2022-09-01] MEDS: VALSARTAN 160 MG TAB PO SCH (08:00)
[2022-09-01] MEDS: TAMSULOSIN 0.4 MG SR CAP PO SCH (08:43)
[2022-09-01] MEDS: BISACODYL E.C. 5 MG TAB PO SCH (08:44)
[2022-09-01] MEDS: GABAPENTIN 300 MG CAP PO SCH ×2 (08:44→19:47)
[2022-09-01] MEDS: PROPRANOLOL HCL 10 MG TAB PO SCH ×4 (08:45→19:45)
[2022-09-01] MEDS: LIDOCAINE 4% PATCH TOP SCH (08:46)
[2022-09-01] MEDS: ENSURE HIGH PROTEIN 237 ML CAN PO SCH ×2 (09:26→19:48)
[2022-09-01] MEDS: DOCUSATE NA/SENNA CONC 1 TAB PO SCH (19:45)
[2022-09-01] MEDS: APIXABAN 2.5 MG TABLET PO SCH (19:45)
[2022-09-01] MEDS: ATORVASTATIN 10 MG TAB PO SCH (19:47)
[2022-09-01] MEDS: TRAZODONE 50 MG TABLET PO PRN (22:36)
[2022-09-02] MEDS: GABAPENTIN 300 MG CAP PO SCH ×2 (08:00→19:08)
[2022-09-02] MEDS: BISACODYL E.C. 5 MG TAB PO SCH (08:00)
[2022-09-02] MEDS: POLYETHYL GLY 3350 17 GM/DOSE PO SCH ×2 (08:00→19:09)
[2022-09-02] MEDS: VALSARTAN 160 MG TAB PO SCH (08:00)
[2022-09-02] MEDS: LIDOCAINE 4% PATCH TOP SCH (08:13)
[2022-09-02] MEDS: TAMSULOSIN 0.4 MG SR CAP PO SCH (08:14)
[2022-09-02] MEDS: APIXABAN 2.5 MG TABLET PO SCH ×2 (08:14→19:08)
[2022-09-02] MEDS: TRAMADOL HCL 50 MG TAB PO PRN ×4 (08:17→23:03)
[2022-09-02] MEDS: PROPRANOLOL HCL 10 MG TAB PO SCH ×2 (08:18→12:20)
[2022-09-02] MEDS: ENSURE HIGH PROTEIN 237 ML CAN PO SCH ×2 (09:08→19:09)
[2022-09-02] MEDS ORDERED: PROPRANOLOL HCL 10 MG TAB PO PRN (12:19)
[2022-09-02] MEDS: ATORVASTATIN 10 MG TAB PO SCH (19:08)
[2022-09-02] MEDS: DOCUSATE NA/SENNA CONC 1 TAB PO SCH (19:09)
[2022-09-02] MEDS: TRAZODONE 50 MG TABLET PO PRN (23:00)
[2022-09-03] MEDS: methocarbamoL 500 MG TAB PO PRN ×2 (04:01→19:38)
[2022-09-03] MEDS: TRAMADOL HCL 50 MG TAB PO PRN ×4 (07:32→21:02)
[2022-09-03] MEDS: LIDOCAINE 4% PATCH TOP SCH (07:32)
[2022-09-03] MEDS: TAMSULOSIN 0.4 MG SR CAP PO SCH (07:33)
[2022-09-03] MEDS: APIXABAN 2.5 MG TABLET PO SCH ×2 (07:34→19:38)
[2022-09-03] MEDS: BISACODYL E.C. 5 MG TAB PO SCH (07:34)
[2022-09-03] MEDS: GABAPENTIN 300 MG CAP PO SCH ×2 (07:34→19:38)
[2022-09-03] MEDS: VALSARTAN 80 MG TAB PO SCH (07:38)
[2022-09-03] MEDS: POLYETHYL GLY 3350 17 GM/DOSE PO SCH ×2 (07:40→19:38)
[2022-09-03] MEDS ORDERED: VALSARTAN 160 MG TAB PO SCH (08:00)
[2022-09-03] MEDS: ENSURE HIGH PROTEIN 237 ML CAN PO SCH ×2 (09:29→19:38)
[2022-09-03] MEDS: ATORVASTATIN 10 MG TAB PO SCH (19:37)
[2022-09-03] MEDS: PANTOPRAZOLE 40MG TABLET PO SCH (19:37)
[2022-09-03] MEDS: TRAZODONE 50 MG TABLET PO PRN (19:37)
[2022-09-03] MEDS: DOCUSATE NA/SENNA CONC 1 TAB PO SCH (19:38)
--- NOTE | 2022-09-04 00:20 | PN ---
Date of Progress Note: 09/03/2022 This is a pdos-ip-shab progress note. Subjective: Mr. Yost is actually lying in bed watching the [employer] Victory Parade after they winni ng the World Series. He reports no pain or discomfort. He is doing well as he rests in bed. He hall s report pain up to 8 perhaps out of 10 as he twists or turns to get out of bed. Otherwise, no posit kilo on his complaints. Review of Systems: No fevers, chills, nausea. There is pain on the left rib fracture sites and in the pelvic region and at his pelvic fracture sites, but again that is noted above. No other positives on a 10 point syste ms review. Physical Examination: Vital Signs: Blood pressure 152/68, pulse 61, temperature 97.8, O2 saturation is 96%. There were or thostatic blood pressures done: Lying 132/68, pulse 61; sitting 142/67, pulse 71; standing 136/73, p ulse 67. No symptoms during those. Lungs: Clear to auscultation. Abdomen: Soft. Extremities: Show no significant edema. Laboratory Studies: No new laboratory studies since the 4th. White blood cell count was 5.1, hemogl obin 11.9 on the 4th. Also, prealbumin was 14.3, sodium 135. X-ray Imaging: No new x-rays or imaging. Medications: Currently, Eliquis 2.5 mg twice daily, Tylenol 1000 mg every 8 hours as needed, Lipitor 10 mg at bedtime, Dulcolax suppository as needed 10 mg, gabapentin 600 mg at bedtime and 300 mg in t he morning, lidocaine patch to the thighs as needed, melatonin 5 mg at bedtime, Robaxin 500 mg every 4 hours as needed, Ensure high-protein 237 mL twice daily, Inderal 10 mg twice daily, Senokot-S 2 tab lets at bedtime, Flomax 0.4 mg daily, tramadol 50 mg every 4 hours as needed, trazodone 25 mg at bedt latisha, valsartan 80 mg daily. Current Functional Status: Currently in terms of his ambulation, he is able to go 300 feet independe ntly with a rolling walker, also up and down 15 steps independently with bilateral hand rails, self p ropelled wheelchair 250 feet with bilateral lower extremities with physical therapist with bilateral lower extremities. Progress toward rehabilitation goals: He is making excellent progress with physical and occupational therapy. No significant barriers. Assessment: Ms. Yost is a 72-year-old patient who has multiple fractures including pelvic and rib areas, who is doing very, very well with all of his physical and occupational therapy and does not h ave any significant barriers. He does have benign prostatic hypertrophy. He is on Flomax for that. Has hypertension, is on multiple antihypertensives. Has malnutrition, he is on Ensure high protein. He has some muscle spasms around the areas of fractures. He is on Robaxin. He also has gabapentin for neuropathic pain. He has Lipitor for dyslipidemia. Eliquis 2.5 mg twice daily for DVT prophyla xis. Comorbidities that continue to impact rehabilitation progress: He has no significant comorbidi ties now that are impacting his ability to do very, very well and those are addressed and managed abo ve. FANTASMA/INA Voice ID: [id number] Report ID: [id number]
[2022-09-04] MEDS: methocarbamoL 500 MG TAB PO PRN ×2 (02:33→11:50)
[2022-09-04] MEDS: PANTOPRAZOLE 40MG TABLET PO SCH (05:28)
[2022-09-04] MEDS: LIDOCAINE 4% PATCH TOP SCH (07:05)
[2022-09-04] MEDS: POLYETHYL GLY 3350 17 GM/DOSE PO SCH ×2 (07:45→20:53)
[2022-09-04] MEDS: TAMSULOSIN 0.4 MG SR CAP PO SCH (07:45)
[2022-09-04] MEDS: APIXABAN 2.5 MG TABLET PO SCH ×2 (07:46→20:52)
[2022-09-04] MEDS: VALSARTAN 80 MG TAB PO SCH (07:46)
[2022-09-04] MEDS: GABAPENTIN 300 MG CAP PO SCH ×2 (07:46→20:52)
[2022-09-04] MEDS: BISACODYL E.C. 5 MG TAB PO SCH (07:46)
[2022-09-04] MEDS: ENSURE HIGH PROTEIN 237 ML CAN PO SCH ×2 (07:47→20:53)
[2022-09-04] MEDS: TRAMADOL HCL 50 MG TAB PO PRN ×3 (08:09→21:00)
[2022-09-04] MEDS: DOCUSATE NA/SENNA CONC 1 TAB PO SCH (20:52)
[2022-09-04] MEDS: ATORVASTATIN 10 MG TAB PO SCH (20:53)
[2022-09-04] MEDS: TRAZODONE 50 MG TABLET PO PRN (20:54)
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
[2022-09-05] MEDS: POLYETHYL GLY 3350 17 GM/DOSE PO SCH ×2 (08:00→19:31)
[2022-09-05] MEDS: APIXABAN 2.5 MG TABLET PO SCH ×2 (08:07→19:30)
[2022-09-05] MEDS: LIDOCAINE 4% PATCH TOP SCH (08:07)
[2022-09-05] MEDS: VALSARTAN 80 MG TAB PO SCH ×2 (08:07→19:31)
[2022-09-05] MEDS: TRAMADOL HCL 50 MG TAB PO PRN ×3 (08:08→19:32)
[2022-09-05] MEDS: BISACODYL E.C. 5 MG TAB PO SCH (08:08)
[2022-09-05] MEDS: GABAPENTIN 300 MG CAP PO SCH ×2 (08:08→19:31)
[2022-09-05] MEDS: TAMSULOSIN 0.4 MG SR CAP PO SCH (08:08)
[2022-09-05] MEDS: ENSURE HIGH PROTEIN 237 ML CAN PO SCH ×2 (09:09→19:31)
[2022-09-05] MEDS: DOCUSATE NA/SENNA CONC 1 TAB PO SCH (19:31)
[2022-09-05] MEDS: ATORVASTATIN 10 MG TAB PO SCH (19:31)
[2022-09-05] MEDS: TRAZODONE 50 MG TABLET PO PRN (22:16)
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
[2022-09-06 07:36] VITALS: TEMP 97
[2022-09-06] MEDS: LIDOCAINE 4% PATCH TOP SCH (07:43)
[2022-09-06] MEDS: GABAPENTIN 300 MG CAP PO SCH (07:44)
[2022-09-06] MEDS: TAMSULOSIN 0.4 MG SR CAP PO SCH (07:44)
[2022-09-06] MEDS: APIXABAN 2.5 MG TABLET PO SCH (07:44)
[2022-09-06] MEDS: BISACODYL E.C. 5 MG TAB PO SCH (07:45)
[2022-09-06] MEDS: TRAMADOL HCL 50 MG TAB PO PRN (07:45)
[2022-09-06] MEDS: ENSURE HIGH PROTEIN 237 ML CAN PO SCH (08:00)
[2022-09-06] MEDS: POLYETHYL GLY 3350 17 GM/DOSE PO SCH (08:00)
[2022-09-06 09:33] VITALS: BP 134/68
[2022-09-06] MEDS: VALSARTAN 80 MG TAB PO SCH (09:33)
== END 2022-09-06 10:30 | disposition home or self-care (01) | DRG 184 ==
LOC: 5TH 11:14
PROVIDERS: ADMIT Psychiatry & Neurology Neurology with Special Qualifications in Child Neurology; ATTEND Psychiatry & Neurology Neurology with Special Qualifications in Child Neurology
DX: S22.42XA Multiple fractures of ribs, left side, initial encounter for closed fracture (principal); E46 Unspecified protein-calorie malnutrition; S32.810A Multiple fractures of pelvis with stable disruption of pelvic ring, initial encounter for closed fracture; S32.10XA Unspecified fracture of sacrum, initial encounter for closed fracture; S32.059A Unspecified fracture of fifth lumbar vertebra, initial encounter for closed fracture; I10 Essential (primary) hypertension; N40.0 Benign prostatic hyperplasia without lower urinary tract symptoms; D64.9 Anemia, unspecified; G62.9 Polyneuropathy, unspecified; E78.5 Hyperlipidemia, unspecified; M62.838 Other muscle spasm; Z68.28 Body mass index [BMI] 28.0-28.9, adult; Z79.02 Long term (current) use of antithrombotics/antiplatelets; Z20.822 Contact with and (suspected) exposure to COVID-19; W11.XXXA Fall on and from ladder, initial encounter; Y93.9 Activity, unspecified; Y92.9 Unspecified place or not applicable
CPT/HCPCS: 36415; 80048; 81001; 82040; 83735; 84134; 85025; 87086; 87088; 97110; 97112; 97116; 97162; 97165; 97530; J1650; J2001; U0003